=== PATIENT | female | born 1960 | race Caucasian/White ===

== ENCOUNTER 2020-04-07 16:20 | Emergency (ER) | payer MEDICAID ==
[~2020-04-07] VITALS: Ht 162.6 cm; Wt 108.9 kg
[2020-04-07 16:35] VITALS: BP 126/102; Ht 162.6 cm; Wt 108.9 kg
== END 2020-04-07 17:43 | disposition home or self-care (01) ==
LOC: ED 16:20
DX: N39.0 Urinary tract infection, site not specified (principal); R21 Rash and other nonspecific skin eruption; J45.909 Unspecified asthma, uncomplicated; I10 Essential (primary) hypertension; E11.9 Type 2 diabetes mellitus without complications; Z98.890 Other specified postprocedural states
CPT/HCPCS: J7512